=== PATIENT | male | born 1955 | race Caucasian/White ===

== ENCOUNTER 2017-09-19 16:42 | Emergency (ER) | payer OTHER ==
[~2017-09-19] VITALS: Ht 172.7 cm; Wt 76.0 kg
[2017-09-19 16:44] VITALS: BP 111/66; PULSE 58; RESP 18; TEMP 97.5; O2SAT 96
--- NOTE | 2017-09-19 17:51 | PD ---
HPI Chief Complaint: Musculoskeletal Complaint Time Seen by Provider: 17:27 Travel History International Travel<30 days: No Contact w/Intl Traveler<30days: No Traveled to known affect area: No History of Present Illness HPI 62-year-old male presents to the emergency room for evaluation of right flank pain or injury 1 week ago. Patient states he was wearing a tool belt with a hammer on his back when he jumped down a few feet. Upon jumping, the hammer hit the countertop and jammed up into his back. He has had pain on his right flank since then. It is worse when he lies on his right side at night. He has been taking Motrin occasionally for pain. States pain is not constant. He denies hematuria, dysuria, lightheadedness, dizziness, or any other symptoms. [facility] Social History Tobacco Use: No Allergies-Medications (Allergen,Severity, Reaction): Coded Allergies: No Known Allergies (Unverified , 09/19/17) Review of Systems Except as stated in HPI: all other systems reviewed are Neg Physical Exam Narrative GENERAL: Well-nourished, well-developed male in no acute distress. Afebrile. Ambulatory. SKIN: Focused skin assessment warm/dry. HEAD: Normocephalic. EYES: No scleral icterus. No injection or drainage. NECK: Supple, trachea midline. No JVD or lymphadenopathy. CARDIOVASCULAR: Regular rate and rhythm without murmurs, gallops, or rubs. RESPIRATORY: Breath sounds equal bilaterally. No accessory muscle use. BACK: No CVA tenderness. No rash. No point tenderness on palpation of the spine. Mild tenderness to palpation of the right posterior rib #11. Data Data Last Documented VS Vital Signs Date Time Temp Pulse Resp B/P (MAP) Pulse Ox O2 Delivery O2 Flow Rate FiO2 09/19/17 16:44 97.5 58 18 111/66 (81) 96 Room Air Orders Orders Urinalysis - C+S If Indicated (09/19/17 17:19) Ct Abd/Pel W/O Iv Contrast (09/19/17 18:37) Labs Laboratory Tests Test 09/19/17 17:30 Urine Color YELLOW Urine Turbidity CLEAR Urine pH 6.5 Urine Specific [place] 1.027 Urine Protein NEG mg/dL Urine Glucose (UA) NEG mg/dL Urine Ketones NEG mg/dL Urine Occult Blood NEG Urine Nitrite NEG Urine Bilirubin NEG Urine Urobilinogen LESS THAN 2.0 MG/DL Urine Leukocyte Esterase NEG Urine RBC LESS THAN 1 /hpf Urine WBC LESS THAN 1 /hpf Microscopic Urinalysis Comment CULT NOT INDICATED MDM Medical Decision Making Medical Screen Exam Complete: Yes Emergency Medical Condition: Yes Medical Record Reviewed: Yes Differential Diagnosis Rib fracture, kidney contusion, soft tissue injury, strain Narrative Course 62-year-old male presents to the emergency room for evaluation of right flank pain for the past week. Patient injured his back when a hammer he was wearing in his tool belt jammed into his back. He reports mild pain since then especially when he lies on the right side, like at night. He denies dysuria or hematuria. Patient is well-appearing in the emergency room. Ambulatory without difficulty. Mild tenderness to palpation of posterior rib #11. No obvious deformity. No crepitus. No ecchymosis or erythema. No edema. Very mild CVA tenderness. UA is negative for blood. I have low suspicion for acute kidney injury, rib fracture, or nephrolithiasis. I spoke to my attending physician, Dr. Moffett, who recommends CT without contrast to evaluate for capsular bleed since his pain. Patient will be signed out to nighttime provider pending CT results. Please see her note for disposition. Referrals: Primary Care Physician Additional Instructions: Rest and drink plenty of fluids. Take ibuprofen with food as directed, as needed for pain. Apply ice to the affected area for 20 minutes at a time, as needed for pain and swelling. Follow-up with a primary care physician. Return to the emergency room for worsening symptoms. Disposition: 01 DISCHARGE HOME Condition: Stable Emma Rapp Sep 19, 2017 17:51
[2017-09-19 18:22] LABS: BLOOD, URINE NEG (NEG); GLUCOSE,URINE NEG (NEG); KETONE, URINE NEG (NEG); NITRITE,URINE NEG (NEG); PH, URINE 6.5 (5.0-8.5); URINE COLOR YELLOW (YELLW/STRAW)
[2017-09-19 18:23] LABS: COMMENT (UR) CULT NOT INDICATED; CULTURE IF INDICATED CULT NOT INDICATED
--- NOTE | 2017-09-19 19:18 | RADRPT ---
EXAM DATE/TIME: 09/19/2017 18:49 [facility] COMPARISON: No previous studies available for comparison. INDICATIONS : Trauma, hit in right flank with hammer one week ago. ORAL CONTRAST: No oral contrast ingested. RADIATION DOSE: 6.64 CTDIvol (mGy) MEDICAL HISTORY : None SURGICAL HISTORY : None. ENCOUNTER: Initial ACUITY: 1 week PAIN SCALE: 4/10 LOCATION: Right flank TECHNIQUE: Volumetric scanning of the abdomen and pelvis was performed. Using automated exposure control and ad justment of the mA and/or kV according to patient size, radiation dose was kept as low as reasonably achievable to obtain optimal diagnostic quality images. DICOM format image data is available electro nically for review and comparison. FINDINGS: One lung bases demonstrate minimal atelectasis. No acute findings in the liver, spleen, adrenals, kid neys or pancreas. Mild constipation. No bowel obstruction. No free air or free fluid. Prostate is enlarged. There are relatively nondisplaced right 11th and 12th rib fractures posteriorly. CONCLUSION: 1. Relatively nondisplaced right 11th and 12th rib fractures posteriorly with trace right pleural flu id. No pneumothorax. No acute traumatic injury identified within the abdomen and pelvis. Go Simons MD on September 19, 2017 at 19:12 Board Certified Radiologist. This report was verified electronically.
[2017-09-19] MEDS ORDERED: LIDO5DIS5 TOPICAL (19:32)
[2017-09-19] MEDS ORDERED: TRAM50TA PO (19:32)
--- NOTE | 2017-09-19 19:32 | PD ---
Physical Exam Date Seen by Provider: Sep 19, 2017 Time Seen by Provider: 19:27 Narrative For full history and physical examination please see previous provider's note. I assumed care of this patient at change of shift. At that time a CT of the abdomen and pelvis was pending. Data Data Last Documented VS Vital Signs Date Time Temp Pulse Resp B/P (MAP) Pulse Ox O2 Delivery O2 Flow Rate FiO2 09/19/17 16:44 97.5 58 18 111/66 (81) 96 Room Air Orders Orders Urinalysis - C+S If Indicated (09/19/17 17:19) Ct Abd/Pel W/O Iv Contrast (09/19/17 18:37) Labs Laboratory Tests Test 09/19/17 17:30 Urine Color YELLOW Urine Turbidity CLEAR Urine pH 6.5 Urine Specific [place] 1.027 Urine Protein NEG mg/dL Urine Glucose (UA) NEG mg/dL Urine Ketones NEG mg/dL Urine Occult Blood NEG Urine Nitrite NEG Urine Bilirubin NEG Urine Urobilinogen LESS THAN 2.0 MG/DL Urine Leukocyte Esterase NEG Urine RBC LESS THAN 1 /hpf Urine WBC LESS THAN 1 /hpf Microscopic Urinalysis Comment CULT NOT INDICATED MDM Medical Record Reviewed: Yes Supervised Visit with VALENTÍN: No Interpretation(s) Last Impressions Abdomen/Pelvis CT 09/19/17 1837 Signed Impressions: Service Date/Time: Tuesday, September 19, 2017 18:49 - CONCLUSION: 1. Relatively nondisplaced right 11th and 12th rib fractures posteriorly with trace right pleural fluid. No pneumothorax. No acute traumatic injury identified within the abdomen and pelvis. Go Simons MD Vital Signs Date Time Temp Pulse Resp B/P (MAP) Pulse Ox O2 Delivery O2 Flow Rate FiO2 09/19/17 16:44 97.5 58 18 111/66 (81) 96 Room Air Narrative Course Patient is a 62-year-old male that presented to the emergency Department provided patient of back pain. A CT scan of the abdomen and pelvis was performed, the CT was read by the radiologist and shows Relatively nondisplaced right 11th and 12th rib fractures posteriorly with trace right pleural fluid. No pneumothorax. No acute traumatic injury identified within the abdomen and pelvis. Discussed with my attending physician. Patient will be provided with pain medication. He was advised that he can take up to 6 weeks to completely heal. He was encouraged to continue deep breathing to prevent fluid buildup in the lungs. He will be given an incentive spirometer. He was encouraged follow-up with his primary doctor or return to emergency department for any new or worsening symptoms. Patient verbalized understanding of instructions. Patient stable for discharge. Diagnosis Primary Impression: Rib fractures Qualified Codes: S22.42XA - Multiple fractures of ribs, left side, initial encounter for closed fracture Referrals: Primary Care Physician Patient Instructions: General Instructions, Rib Fracture (ED) Additional Instruction: Rest and drink plenty of fluids. Take ibuprofen with food as directed, as needed for pain. Apply ice to the affected area for 20 minutes at a time, as needed for pain and swelling. Follow-up with a primary care physician. Return to the emergency room for worsening symptoms. Apply Lidoderm patch, on for 12 hours, off for [address] machinery while taking narcotic pain medication Med/Other Pt SpecificInfo: Prescription(s) given Scripts Lidocaine (Lidoderm) 5 % Adh..patch 1 PATCH TOPICAL DAILY Y for PAIN SCALE 1 TO 10, #30 Prov: Salome Marlow 09/19/17 Tramadol (Tramadol) 50 Mg Tab 50 MG PO Q6H Y for PAIN, #15 TAB 0 Refills Prov: Salome Marlow 09/19/17 Disposition: 01 DISCHARGE HOME Condition: Stable Salome Marlow Sep 19, 2017 19:32
[2017-09-19] MEDS ORDERED: traMADol HCL 50 MG TAB PO ONE (20:15)
== END 2017-09-19 20:16 | disposition home or self-care (01) ==
LOC: NEPK 16:42
DX: S22.42XA Multiple fractures of ribs, left side, initial encounter for closed fracture (principal); R10.9 Unspecified abdominal pain; W22.8XXA Striking against or struck by other objects, initial encounter
CPT/HCPCS: 74176; 81001